=== PATIENT | male | born 1985 | race Two or more races ===

== ENCOUNTER 2023-12-25 08:51 | Emergency (ER) | payer OTHER, SELFPAY ==
[2023-12-25 08:54] VITALS: BP 149/89
--- NOTE | 2023-12-25 09:13 | ED.GENMED ---
History of Present Illness
General
Chief Complaint: Abdominal Symptoms
Source: patient
Exam Limitations: none
Time Seen by Provider: 12/25/23 09:00
Travel History
Have you had any contact with someone who has COVID-19?: No
Do you have any symptoms of coronavirus? Fever > 100 degrees, chills, cough, shortness of breath, sore throat, loss of taste or smell, muscle aches, or headache?: No
History of Present Illness
History of Present Illness:
38-year-old male complaining of left lower quadrant pain. Gradual in onset over the last 2 days. No nausea or vomiting. No fever. No urinary symptoms or bowel symptoms. No history of similar episodes. Took Advil last evening.
Past History
Past History
ED Past Medical History: Hypercholesterolemia
Review of Systems
Review of Systems
All Other Systems: Not applicable
Constitutional: Denies fever
ABD/GI: Denies diarrhea
: Reports no symptoms
Phy Exam
Physical Exam
Physical Exam:
GENERAL: Alert and oriented in no apparent distress. Ambulating without difficulty
EYE: Orbits normal.
NECK: Supple
CARDIAC: Regular rate and rhythm without any obvious murmurs.
LUNGS: Clear breath sounds,normal
ABDOMEN: Soft, bowel sounds present. Mild left lower quadrant tenderness no right rebound or guarding. No hernia or masses.
: Testicles normal. No hernia
NEUROLOGICAL: Alert and oriented , grossly non-focal
SKIN: Warm and dry
PSYCH: Normal and appropriate interaction.
Course
Orders/Labs/Results
Orders:
Orders
12/25/23 09:08
CT Abd/pel W Iv And Oral Contr Urgent
Comment:
Reason For Exam: Left lower quadrant pain
IV Insert/Care/Rem.- Treatment PRN
Urinalysis Reflex To Culture Urgent
Date Specimen was Collected: 12/25/23
Time Specimen was Collected: 12:19
0.9% Sodium Chloride 1000 ml [Nss] 1,000 ml IV BOLUS
Iohexol [Omnipaque] See Protocol PO NOW STA
Ketorolac [Toradol] 15 mg IV NOW STA
12/25/23 09:13
Complete Blood Count/With Diff Urgent
Comprehensive Metabolic Panel Urgent
Lipase Urgent
12/25/23 12:19
MetroNIDAZOLE [Flagyl] 500 mg PO NOW STA
12/25/23 12:19
Ciprofloxacin HCl [Cipro] 500 mg PO NOW STA
Abnormal Lab Results
12/25/23
09:13
RDW 11.4 L %
(11.5-14.5)
Absolute Neuts (auto) 7.8 H 10^3/uL
(1.4-6.5)
Lymphocytes % 18.3 L %
(20.5-51.1)
Total Bilirubin 1.4 H mg/dl
(0.2-1.3)
12/25/23 09:13
12/25/23 09:13
Vital Signs
Initial and Last Documented VS:
Initial Vital Signs
Temp Pulse Resp BP Pulse Ox
99 F 94 16 149/89 98
12/25/23 08:54 12/25/23 08:54 12/25/23 08:54 12/25/23 08:54 12/25/23 08:54
Last Documented Vital Signs
Temp Pulse Resp BP Pulse Ox
99 F 94 16 136/85 97
12/25/23 08:54 12/25/23 08:54 12/25/23 08:54 12/25/23 10:22 12/25/23 10:45
MDM/Problems Addressed
Differential Diagnosis Includes:
Differential would include diverticulitis, atypical appendicitis, kidney stone, nonspecific. Workup in progress
*Radiology
Radiology exam reviewed: radiology read reviewed (Uncomplicated diverticulitis by CT.)
*Pulse Oximetry
Patient hypoxic: no
*Critical Care Note
Total Time (30-74mins, 75-104mins- exclusive of procedures): Not Applicable
Update Note
Update Note:
Uncomplicated diverticulitis by CT. Patient in no distress. Nonsurgical abdomen. No fever. Normal white count. Very reasonable for outpatient management.
ED Attending Note
-
Portions of this chart may have been created with voice recognition software.� Occasional wrong word or��sound alike� substitutions may have occurred due to the inherent limitations of voice recognition software.
Discharge Plan
Departure
Patient Disposition: Home (Routine Discharge)
Date of Disposition: 12/25/23
Time of Disposition: 12:20
Patient with high blood pressure during this ER visit?: Yes
Discharge Problem:
Diverticulitis
Instructions: Diverticulitis (DC), BLOOD PRESSURE
Prescriptions:
New
metronidazole 500 mg tablet
500 mg PO TID Qty: 21 0RF
ciprofloxacin HCl 500 mg tablet
500 mg PO BID Qty: 14 0RF
Referrals:
Sandy Stack, [Family Provider] - Follow up in 2-3 days
Interventions
Interventions:
*Risk Screen - Suicide Last Done: 12/25/23 08:56
*General Assessment Last Done: 12/25/23 08:56
*Neglect/Abuse Screening Last Done: 12/25/23 08:56
*ED COVID-19 Vaccine History Last Done: 12/25/23 08:57
AR-Kkvjth-Gbgmkghtyh Assessment Last Done: 12/25/23 10:12
[2023-12-25 09:21] VITALS: BMI 28.9
[2023-12-25] MEDS: NSS 1000 IV (09:24)
[2023-12-25 09:25] VITALS: BP 141/79
[2023-12-25] MEDS: OMNIPAQUE 50 ML PO (09:38)
[2023-12-25] MEDS: TORADOL 15 MG IV (09:39)
[2023-12-25 10:00] VITALS: BP 141/84
[2023-12-25 10:10] LABS: % Basophils 0.2 % (0-2); % Eosinophils 0.2 % (0-6); % Immature Granulocytes 0.4 % (0-0.5); % Lymphocytes 18.3 % (20.5-51.1); % Monocytes 6.1 % (1.7-9.3); % Neutrophils 74.8 % (42.2-75.2); Absolute Lymphocytes 1.9 10^3/uL (1.2-3.4); Absolute Monocytes 0.6 10^3/uL (0.1-0.6); Absolute Neutrophils 7.8 10^3/uL (1.4-6.5); Hematocrit 40.6 % (39.0-52.0); Hemoglobin 14.4 g/dL (13.0-18.0); Mean Corp Hgb Conc. 35.5 g/dL (33.0-37.0); Mean Corpuscular Hgb 30.5 pg (27.0-31.0); Mean Platelet Volume 9.6 fL (7.4-10.4); Nucleated Red Blood Cells % 0 % (-); Platelet Count 209 10^3/uL (130-400); Red Blood Cell Count 4.72 10^6/uL (4.70-6.10); Red Cell Dist. Width 11.4 % (11.5-14.5); White Blood Cell Count 10.4 10^3/uL (4.8-10.8)
[2023-12-25 10:22] VITALS: BP 136/85
[2023-12-25 10:22] LABS: ALT (SGPT) 23 U/L (0-50); AST (SGOT) 27 U/L (17-59); Albumin 4.5 g/dl (3.5-5.0); Alkaline Phosphatase 52 U/L (38-126); Blood Urea Nitrogen 12 mg/dl (9-20); Calcium 9.2 mg/dl (8.4-10.2); Carbon Dioxide 25 mmol/L (22-30); Chloride 103 mmol/L (98-107); Estimated Creatinine Clearance 118 ml/min; Glucose 95 mg/dl (70-99); Lipase 49 U/L (23-300); Potassium 4.1 mmol/L (3.5-5.1); Sodium 136 mmol/L (135-145); Total Bilirubin 1.4 mg/dl (0.2-1.3); Total Protein 7.1 g/dl (6.3-8.2); eGFR > 60.00
[2023-12-25] MEDS: CIPRO 500 MG PO (12:36)
[2023-12-25] MEDS: FLAGYL 500 MG PO (12:36)
[2023-12-25 12:40] LABS: Urine Albumin Negative (Neg - Trace); Urine Bilirubin Negative (Negative); Urine Character Clear (Clear); Urine Color Yellow; Urine Glucose Negative (Negative); Urine Ketone Negative (Negative); Urine Leukocyte Negative (Negative); Urine Nitrite Negative (Negative); Urine Occult Blood Negative (Negative); Urine Urobilinogen Negative (Neg - 1+)
[2023-12-25 12:46] VITALS: BP 136/78
== END 2023-12-25 12:46 | disposition home or self-care (01) ==
LOC: EMR 08:51
PROVIDERS: EMERGENCY PHYSICIAN Emergency Medicine; FAMILY PHYSICIAN Family Medicine
DX: K57.32 Diverticulitis of large intestine without perforation or abscess without bleeding (principal); R03.0 Elevated blood-pressure reading, without diagnosis of hypertension
CPT/HCPCS: 99284; 96374; 96361; 74177; 80053; 81003; 83690; 85025; Q9967

== ENCOUNTER → 2025-03-05 08:19 | Outpatient (REF) | payer OTHER, SELFPAY | LOC: RCS 08:19 | PROVIDERS: ATTENDING PHYSICIAN Family Medicine | DX: R00.0 Tachycardia, unspecified (principal) | CPT/HCPCS: 93225; 93226 ==

== ENCOUNTER 2025-03-24 16:14 | Emergency (ER) | payer OTHER, SELFPAY ==
[2025-03-24 16:36] VITALS: BP 100/80
[2025-03-24 16:50] VITALS: BP 138/81
[2025-03-24] MEDS: ADENOCARD 6 MG IV ×2 (16:51→16:53)
[2025-03-24] MEDS: ADENOCARD IV (16:52)
[2025-03-24] MEDS: ADENOCARD 12 MG IV (16:56)
[2025-03-24 16:57] VITALS: BP 139/83
--- NOTE | 2025-03-24 16:59 | ED.GENMED ---
History of Present Illness
General
Chief Complaint: Heart Rate Problem
Time Seen by Provider: 03/24/25 16:58
History of Present Illness
History of Present Illness:
TIME OF INITIAL ENCOUNTER: 4:50 PM
HPI: The patient presents with palpitations that started about an hour prior to arrival. He states that he had a similar episode about 4 months ago. He saw cloth weigher in [facility] but there was no clear explanation. He just wore a Holter
monitor which was unrevealing. He is supposed to see Dr. Matthews next month.
EXAM:
GENERAL: Well appearing and appears concerned that his heart rate is 200
HEENT: Moist oral mucosa
CARDIOVASCULAR: No murmurs, tachycardic heart rate, regular rhythm, No chest wall tenderness
PULMONARY: No respiratory distress, breath sounds are clear and equal
ABDOMEN: Soft with no peritoneal signs, no tenderness
NEUROLOGIC: Excellent strength all extremities, no coordination deficits
PSYCHIATRIC: Appropriate mental status, normal insight and judgement
EXTREMITIES: Nontender, no edema, moves all extremities equally
SKIN: No rash, no lesions
NUMBER AND COMPLEXITY OF PROBLEMS ADDRESSED AT THE ENCOUNTER
� Chronic conditions affecting care: Hyperlipidemia on a statin
� Acute Exacerbation and/or Progression of Chronic Illness: This is an acute problem
� Differential Diagnosis includes: SVT, electrolyte abnormality, thyroid disease, highly doubt ACS
AMOUNT AND/OR COMPLEXITY OF DATA TO BE REVIEWED AND ANALYZED
� I performed an independent evaluation of and my interpretation is:
EKG: SVT rate of 203; repeat EKG shows no acute ST abnormality
CT:
X-rays:
Laboratory Studies: White count and hemoglobin are normal, bicarb is slightly low and creatinine is slightly high. GFR is greater than 60. Magnesium normal, potassium normal. TSH normal.
Other:
� Review of other/old records: I reviewed records, the patient had a Holter monitor this past February that showed rare supraventricular and ventricular ectopy with no sustained arrhythmias
� Clinical information was obtained by an independent historian: None needed
� Prescriptions/Medications Considered but not given:
� Further testing considered but not performed:
RISK OF COMPLICATIONS AND/OR MORBIDITY OR MORTALITY OF PATIENT MANAGEMENT
� Social determinants of health affecting care: Lives at home
� Discussion with other providers: Discussed case with Dr. Summers who agrees with beta-ananth. He will follow-up Dr. Summers as an outpatient for likely SVT ablation.
� Escalation of care including admission/observation vs risk of discharge considered: The patient arrived with heart rate in the 200s upon arrival. This was narrow complex. Monitoring consistent with SVT. We tried vagal
maneuvers initially which failed. We then tried 6 mg then 12 mg of adenosine and did convert.
ANY OTHER UPDATES:
Past History
Past History
ED Past Medical History: Hypercholesterolemia
Phy Exam
Physical Exam
Physical Exam:
See HPI
Course
Orders/Labs/Results
Orders:
Orders
03/24/25 16:50
Adenosine [Adenocard] 6 mg IV NOW STA
03/24/25 16:52
Adenosine [Adenocard] 12 mg IV NOW STA
03/24/25 16:54
Adenosine [Adenocard] 6 mg IV NOW STA
03/24/25 16:55
Adenosine [Adenocard] 12 mg .ROUTE .STK-MED ONE
03/24/25 17:00
Basic Metabolic Panel Urgent
Complete Blood Count/With Diff Urgent
Magnesium Urgent
TSH Reflex To Free T4 Urgent
03/24/25 17:01
Electrocardiogram (*1) Urgent
Reason for Study: Palpitations
EKG- Treatment ONCE
03/24/25 17:02
Electrocardiogram (*1) Urgent
Reason for Study: Palpitations
EKG- Treatment ONCE
03/24/25 17:28
Metoprolol Xl [Toprol Xl] 25 mg PO NOW STA
Abnormal Lab Results
03/24/25
17:00
RDW 11.4 L %
(11.5-14.5)
Absolute Lymphs (auto) 3.9 H 10^3/uL
(1.2-3.4)
Carbon Dioxide 20 L mmol/L
(22-30)
Creatinine 1.4 H mg/dL
(0.7-1.3)
Glucose 149 H mg/dl
(70-99)
03/24/25 17:00
03/24/25 17:00
Vital Signs
Initial and Last Documented VS:
Initial Vital Signs
Pulse Resp BP Pulse Ox
217 24 100/80 100
03/24/25 16:36 03/24/25 16:36 03/24/25 16:36 03/24/25 16:36
Last Documented Vital Signs
Pulse Resp BP Pulse Ox
92 10 130/89 95
03/24/25 17:30 03/24/25 17:30 03/24/25 17:30 03/24/25 17:30
*Critical Care Note
Total Time (30-74mins, 75-104mins- exclusive of procedures): 45min
comment:
The patient was seen immediately upon arrival as his heart rate was over 200. He had a narrow complex tachycardia. He was emergently given adenosine and then beta-ananth and his heart rate has dramatically improved. He did convert back to a
sinus rhythm. I also discussed emergently with cardiology.
ED Attending Note
-
Portions of this chart may have been created with voice recognition software.� Occasional wrong word or��sound alike� substitutions may have occurred due to the inherent limitations of voice recognition software.
Discharge Plan
Departure
Patient Disposition: Home (Routine Discharge)
Date of Disposition: 03/24/25
Time of Disposition: 17:21
Patient with high blood pressure during this ER visit?: Yes
Discharge Problem:
SVT (supraventricular tachycardia)
Prescriptions:
New
metoprolol succinate [Toprol XL] 25 mg tablet extended release 24 hr
25 mg PO BID Qty: 60 0RF
No Action
metronidazole 500 mg tablet
500 mg PO TID Qty: 21 0RF
ciprofloxacin HCl 500 mg tablet
500 mg PO BID Qty: 14 0RF
Referrals:
Julia Summers MD [Active] - Follow up in 10 days
Activity Restrictions/Additional Instructions:
You are found to have be in supraventricular tachycardia today (SVT). I notified Dr. Matthews's associate, Dr. Summers. Dr. Summers happens to be an electrolysis investigator. He said that his office will call you on Wednesday to arrange to follow-up with
him instead of Dr. Matthews. They could consider doing an SVT ablation. He also recommends that you start a beta-ananth to help keep your heart rate slower so this does not recur.
Interventions
Interventions:
*Risk Screen - Suicide Last Done: 03/24/25 16:36
*General Assessment Last Done: 03/24/25 16:36
*Nursing Disposition Last Done: 03/24/25 17:44
ED- Cardiac Assessment Last Done: 03/24/25 17:21
ED- Pulmonary Assessment Last Done: 03/24/25 17:21
Discharge Date and Time
Discharge Date/Time: 03/24/25 17:44
Print Language: BAHAMIAN
[2025-03-24 17:09] LABS: % Basophils 0.3 % (0-2); % Eosinophils 0.3 % (0-6); % Immature Granulocytes 0.2 % (0-0.5); % Lymphocytes 38.3 % (20.5-51.1); % Monocytes 5.3 % (1.7-9.3); % Neutrophils 55.6 % (42.2-75.2); Absolute Lymphocytes 3.9 10^3/uL (1.2-3.4); Absolute Monocytes 0.5 10^3/uL (0.1-0.6); Absolute Neutrophils 5.6 10^3/uL (1.4-6.5); Hematocrit 44.8 % (39.0-52.0); Hemoglobin 15.5 g/dL (13.0-18.0); Mean Corp Hgb Conc. 34.6 g/dL (33.0-37.0); Mean Corpuscular Volume 86.7 fL (80.0-94.0); Mean Platelet Volume 9.8 fL (7.4-10.4); Nucleated Red Blood Cells % 0 % (-); Platelet Count 284 10^3/uL (130-400); Red Blood Cell Count 5.17 10^6/uL (4.70-6.10); Red Cell Dist. Width 11.4 % (11.5-14.5); White Blood Cell Count 10.1 10^3/uL (4.8-10.8)
[2025-03-24 17:23] LABS: Blood Urea Nitrogen 14 mg/dl (9-20); Calcium 10.2 mg/dl (8.4-10.2); Carbon Dioxide 20 mmol/L (22-30); Chloride 106 mmol/L (98-107); Glucose 149 mg/dl (70-99); Magnesium 1.7 mg/dl (1.6-2.3); Potassium 4.3 mmol/L (3.5-5.1); Sodium 139 mmol/L (135-145); eGFR > 60.00
[2025-03-24 17:30] VITALS: BP 130/89
[2025-03-24] MEDS: TOPROL XL 25 MG PO (17:30)
[2025-03-24 17:52] LABS: TSH Reflex To Free T4 2.81 uIU/ml (0.47-4.68)
== END 2025-03-24 17:44 | disposition home or self-care (01) ==
LOC: EMR 16:14
PROVIDERS: EMERGENCY PHYSICIAN Emergency Medicine; FAMILY PHYSICIAN Family Medicine
DX: I47.10 Supraventricular tachycardia, unspecified (principal); R03.0 Elevated blood-pressure reading, without diagnosis of hypertension; E78.00 Pure hypercholesterolemia, unspecified; Z79.899 Other long term (current) drug therapy
CPT/HCPCS: 99291; 96374; 80048; 83735; 84443; 85025; 93005; J0153

== ENCOUNTER 2025-07-04 10:21 | Day surgery (SDC) | payer OTHER, SELFPAY ==
[2025-06-22 07:57] VITALS: BMI 29.7
--- NOTE | 2025-06-22 08:45 | HPS.HSE ---
Family Physician
-
Family Physician: Sandy Stack
Chief Complaint
-
Supraventricular tachycardia.
History of Present Illness
The patient is a 40 year old male presenting today for supraventricular tachycardia. He does report a history of disturbing palpitations associated with this diagnosis. He presented to the ER here at [facility] in March
2024 for rapid heart beating. His EKG at that time confirmed the presence of supraventricular tachycardia. 6 mg of Adenosine failed to terminate the arrhythmia but 12 mg of Adenosine abruptly terminated his tachycardia. He is on current
pharmacological therapy with Metoprolol Succinate. He is interested in pursuing with SVT ablation for further arrhythmia management. He denies any current complaints today such as chest pain, shortness of breath, nausea, vomiting, diarrhea,
lightheadedness, dizziness, cough, sore throat, or fever.
Medical History
Past Medical History
Past Medical History: Reports Other
Additional Past Medical History:
1. Supraventricular tachycardia, pharmacological therapy with Metoprolol Succinate.
2. Hypercholesterolemia.
3. Exercise induced asthma.
4. Diverticulitis 2023.
5. History of tobacco abuse.
Past Surgical History: Reports Other
Additional Past Surgical History:
[place] teeth extraction.
Social History
Tobacco: Former Smoker (He is a former 1 pack per week cigarette smoker who quit tobacco altogether approximately 5 years ago. )
Alcohol: Other (Rare use reported.)
Personal:
Living: Other (He lives with his in a 2 story home. )
Family History
Family History: Early CAD
Allergies / Home Medications
Allergy/Medication List:
Home medications:
1. Atorvastatin 10 mg p.o. at bedtime.
2. Glucosamine Chondroitin 1 dose p.o. daily.
3. Metoprolol Succinate 25 mg p.o. twice a day.
4. Multivitamin 1 tablet p.o. daily.
5. Probiotic 1 dose p.o. daily.
Allergies: No known allergies.
Review of Systems
-
A 12 point ROS was completed and negative except as noted: Yes
Physical Exam
Vital Signs
Blood pressure 127/82. Heart rate 56. Respirations 18. Pulse ox 97% on room air.
Height 6 feet, 1.5 inches. Weight 103.4 kg. BMI 29.7.
Physical Exam
General: Well Developed, Well Nourished and No Apparent Distress
HEENT: NormoCephalic, Moist mucous membranes, Atraumatic and PERRLA
Respiratory: Clear
Cardiac: Bradycardia
GI: Soft, Non Tender and Non Distended
Musculoskeletal: No Edema and Normal Gait & Station
Skin: Warm and Dry
Neuro: AO x 3 and Nonfocal/grossly intact
Laboratory Results
-
DIAGNOSTIC STUDIES as of 06/22/2025: White blood cell count 4.9. Hemoglobin 14.2. Platelet count 197,000. Sodium 140. Potassium 4.9. BUN 14. Creatinine 1.0. Glucose 101. Calcium 9.3. AST 37. ALT 27. Albumin 4.7.
EKG 06/22/2025: Sinus bradycardia with sinus arrhythmia. Poor R wave progression; consider anterior infarct, lead placement, or normal variant.
Impression/Plan
-
IMPRESSION/PLAN:
1. Supraventricular tachycardia: The patient is in need of an SVT ablation with Dr. Willie Del Valle on 07/04/2025. The benefits and risks of the procedure have been explained to the patient. The patient understands these risks and wishes to
proceed. He is aware to take no medications the morning of his ablation.
[2025-06-22 08:49] LABS: Hematocrit 42.3 % (39.0-52.0); Hemoglobin 14.2 g/dL (13.0-18.0); Mean Corp Hgb Conc. 33.6 g/dL (33.0-37.0); Mean Corpuscular Volume 89.2 fL (80.0-94.0); Nucleated Red Blood Cells % 0 % (-); Platelet Count 197 10^3/uL (130-400); Red Cell Dist. Width 11.8 % (11.5-14.5)
[2025-06-22 09:36] LABS: ALT (SGPT) 37 U/L (0-50); AST (SGOT) 37 U/L (17-59); Albumin 4.7 g/dl (3.5-5.0); Alkaline Phosphatase 27 U/L (38-126); Blood Urea Nitrogen 14 mg/dl (9-20); Calcium 9.3 mg/dl (8.4-10.2); Carbon Dioxide 28 mmol/L (22-30); Chloride 107 mmol/L (98-107); Estimated Creatinine Clearance 114 ml/min; Glucose 101 mg/dl (70-99); Magnesium 2.1 mg/dl (1.6-2.3); Potassium 4.9 mmol/L (3.5-5.1); Sodium 140 mmol/L (135-145); Total Protein 7.2 g/dl (6.3-8.2); eGFR > 60.00
[2025-07-04] VITALS (9 sets, daily range): BP systolic 112–134; BP diastolic 71–85; BMI 28.1
--- NOTE | 2025-07-04 12:58 | ITS.CL.ABL ---
Attache - Ablation
Ablation
Procedure Report:
ELECTROPHYSIOLOGY STUDY REPORT
Date of Procedure: July 04, 2025
Primary Care Provider: Dr. Sandy Stack
INDICATION: Symptomatic supraventricular tachycardia
HISTORY:
He was seen at [facility] emergency department for rapid heart beating March 24, 2025. He notes that episode lasted approximately 1 hour.� Similar to his prior episode in November there was abrupt initiation/onset of tachycardia.� At the
emergency department he was found to be in SVT.� 6 mg of adenosine failed to terminate the tachycardia but 12 mg of adenosine abruptly terminated the tachycardia.
ECG performed at [facility] 03/24/2025 findings narrow QRS complex tachycardia 203 bpm, regular, no clearly discernible P waves.
'Time-out' was called and confirmed.
Presenting rhythm: Sinus rhythm
PROCEDURE:
[ ] Ultrasound Guidance with real-time visualization of needle insertion and vessel patency performed by me for femoral venous Vascular Access.
Under real-time US guidance, the needle was advanced with negative pressure into the vein. The needle was seen entering the vessel lumen with a good return of dark red flow, the syringe was removed, non-pulsatile, dark red blood low was noted and
the wire was passed without difficulty, then the needle was removed. US confirmed the wire was in the vein, not going into an artery,
Images were taken and saved for the patient's permanent record. Imaging findings typical femoral venous anatomy. Direct visualization of needle puncture into the femoral vein was observed and recorded.
Multipolar recording catheters were positioned at the HRA, RVA, His bundle and CS (for left atrial recording/mapping).
Mapping, recording and pacing were performed from these sites.
Baseline measurements were recorded and analyzed. Antegrade and retrograde AV alicia Wenckebach CLs were obtained.
Programmed electrical stimulation was performed. Premature extrastimuli were delivered from the HRA, CS and RVA catheters.
Burst atrial pacing was also performed from HRA and LA (CS) sites.
NH: 179
QRS: 90
QT: 453 with corrected QT interval 449
AH: 83
HV: 49
Antegrade AVW: 310
Retrograde VAW: 410
AVNERP: 600/270
With programmed electrical stimulation in the baseline state evidence of dual AV alicia physiology is evident as well as single AV alicia echoes but no sustained SVT.
Patient was then started on escalating dose of isoproterenol and on escalating dose isoproterenol infusion programmed electrical stimulation was repeated. Dual AV alicia pathways with up to 2 AV alicia echoes were observed.
External was discontinued and programmed electrical stimulation was repeated during the washout phase. Now with burst ventricular pacing SVT could be reliably induced. SVT is a regular narrow QRS complex tachycardia at 330 ms
Corrected PPI-TCL: Entrainment by RV apical pacing at 20-40ms faster than the TCL accelerated the atrial CL to the PCL without change in the activation sequence and the tachycardia resumed after termination of pacing.
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
During ventricular overdrive pacing of SVT, there is atrial advancement. The paced VA interval from onset of the pacing stimulus to the subsequent earliest atrial activation minus the VA interval during SVT was calculated. Delta VA interval
greater than 85 ms is found and is consistent with AVNRT.
SVT at CL = 330 ms was induced
Evidence for typical AV Alicia Reentry as the tachycardia diagnosis included: (1) A concentric midline atrial activation sequence during SVT, (2) ventricular pacing from the RVA showed earliest retrograde atrial activation to be midline, matching
that seen during SVT, (3) Atrial activation during SVT began within the first 70ms of the QRS complex excluding AVRT and making AT unlikely, (4) Initiation of SVT was dependent on a critical AH interval (slow pathway engagement), (5) Ventricular
pacing at a CL 20-30 ms faster than the SVT CL during the SVT demonstrated advancement of the atrial electrogram to the pacing CL and when pacing was terminated, a V-A-V pattern with continuation of SVT was observed practically excluding AT as the
SVT mechanism.
Additionally, Corrected PPI-TCL: Entrainment by RV apical pacing at 20-40ms faster than the TCL accelerated the atrial CL to the PCL without change in the activation sequence and the tachycardia resumed after termination of pacing. Corrected PPI-TCL
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
During ventricular overdrive pacing of SVT, there is atrial advancement. The paced VA interval from onset of the pacing stimulus to the subsequent earliest atrial activation minus the VA interval during SVT was calculated. Delta VA interval
greater than 85 ms is found and is consistent with AVNRT.
SVT could be terminated by burst ventricular pacing.
The SVT was well-tolerated hemodynamically.
Radiofrequency Catheter Ablation:
Additional mapping was provided with three-dimensional electroanatomical mapping utilizing the high density [employer] grid catheter to identify the AV alicia slow pathway.
Once the AV alicia slow pathway was identified, a 4 mm tip irrigated contact sensing catheter was navigated to the target site.
Initially RF energy was delivered to more distal site with much larger ventricular component on the electrogram out of an abundance of caution. This failed to result in any junctional rhythms. The ablation catheter tip was then withdrawn more
proximally to obtain a slightly larger atrial retrogram.
RF energy at the successful site resulted in nearly immediate accelerated junctional rhythm. At no point was AV delay or heart block observed. Retrograde junctional - atrial conduction was evaluated during RF application and at no point was VA
delay or block observed.
PES stimulation was repeated both in the baseline state and on isoproterenol and with program electrostimulation there is nonsustained AVNRT.
The ablation catheter was navigated back to the area of the target where additional energy was delivered resulting in nearly immediate junctional rhythms throughout the ablation of 60 seconds. No heart block was observed. Programmed electrical
stimulation was repeated and now there is no evidence of AV alicia slow pathway.
After a 15 minute waiting period, stimulation was repeated and still there is no evidence of AV alicia slow pathway and there is no inducible arrhythmia.
No sustained SVT was induced, a marked contrast to the pre-ablation situation.
COMPLICATIONS: None
SUMMARY:
Ultrasound guided vascular access.
Three-dimensional electroanatomical mapping
EP study and ablation of SVT
EP study on drug infusion
RECOMMENDATIONS:
Reduced Toprol-XL from 25 mg twice daily to 25 mg once daily and reassess need as an outpatient
I called and reported today's findings and results to his Stephanie
Copy to:
Dr. Sandy Stcak
== END 2025-07-04 18:45 | disposition home or self-care (01) ==
LOC: CATH 10:21
PROVIDERS: ATTENDING PHYSICIAN Internal Medicine Cardiovascular Disease; FAMILY PHYSICIAN Family Medicine
DX: I47.10 Supraventricular tachycardia, unspecified (principal); E78.00 Pure hypercholesterolemia, unspecified; I49.3 Ventricular premature depolarization; I49.8 Other specified cardiac arrhythmias; Z79.899 Other long term (current) drug therapy; Z82.49 Family history of ischemic heart disease and other diseases of the circulatory system; Z87.891 Personal history of nicotine dependence; J45.990 Exercise induced bronchospasm
CPT/HCPCS: C1732; C1894; C1769; C1766; C1892; 36415; 80053; 83735; 85025; 93005; 93623; 93653; C1730; C1760